=== PATIENT | female | born 1995 | race Two or more races ===

== ENCOUNTER 2020-12-29 09:38 | Outpatient (CLI) | payer OTHER ==
[~2020-12-29 09:38] MED LIST: METFORMIN HCL500 M3 PO
== END 2020-12-29 12:35 | disposition home or self-care (01) ==
LOC: PRENATAL 09:38
PROVIDERS: ATTEND Obstetrics & Gynecology Maternal & Fetal Medicine
DX: O35.0XX1 Maternal care for (suspected) central nervous system malformation in fetus, fetus 1 (principal); O35.3XX1 Maternal care for (suspected) damage to fetus from viral disease in mother, fetus 1; O98.512 Other viral diseases complicating pregnancy, second trimester; O24.410 Gestational diabetes mellitus in pregnancy, diet controlled; O99.212 Obesity complicating pregnancy, second trimester; Z36.89 Encounter for other specified antenatal screening; Z3A.20 20 weeks gestation of pregnancy

== ENCOUNTER 2021-02-11 09:00 | Outpatient (CLI) | payer OTHER ==
[2021-02-11] MEDS ORDERED: HUMULIN N100 UNIT/2 SUBCUTANEO (10:01)
[2021-02-11] MEDS ORDERED: INSULIN SYRING1 EA29 SUBCUTANEO (10:04)
[2021-02-11] MEDS ORDERED: HUMULIN R100 UNIT/1 SUBCUTANEO (10:04)
[2021-02-11] MEDS ORDERED: ALCOHOL PADS1 EACH TOP (10:05)
== END 2021-02-11 09:40 | disposition home or self-care (01) ==
LOC: PRENATAL 09:00
PROVIDERS: ATTEND Obstetrics & Gynecology Maternal & Fetal Medicine
DX: O26.843 Uterine size-date discrepancy, third trimester (principal); O24.410 Gestational diabetes mellitus in pregnancy, diet controlled; O99.213 Obesity complicating pregnancy, third trimester; O35.0XX1 Maternal care for (suspected) central nervous system malformation in fetus, fetus 1; O98.513 Other viral diseases complicating pregnancy, third trimester; Z36.89 Encounter for other specified antenatal screening; Z3A.28 28 weeks gestation of pregnancy

== ENCOUNTER 2021-03-15 14:21 | Outpatient (CLI) | payer OTHER ==
[~2021-03-15 14:21] MED LIST changes: +ALCOHOL PADS1 EACH TOP; +HUMULIN N100 UNIT/2 SUBCUTANEO; +HUMULIN R100 UNIT/1 SUBCUTANEO; +INSULIN SYRING1 EA29 SUBCUTANEO
== END 2021-03-15 15:24 | disposition home or self-care (01) ==
LOC: PRENATAL 14:21
PROVIDERS: ATTEND Obstetrics & Gynecology Maternal & Fetal Medicine
DX: O26.843 Uterine size-date discrepancy, third trimester (principal); O24.410 Gestational diabetes mellitus in pregnancy, diet controlled; O99.213 Obesity complicating pregnancy, third trimester; Z36.89 Encounter for other specified antenatal screening; Z3A.32 32 weeks gestation of pregnancy

== ENCOUNTER 2021-04-01 15:00 | Inpatient (IN) | payer OTHER ==
[~2021-04-01] VITALS: Ht 167.6 cm; Wt 113.4 kg
[2021-04-01] MEDS ORDERED: PRENATAL TABLE1 EAC1 PO (21:11)
[2021-04-01] MEDS ORDERED: LABETALOL HCL100 MG PO (21:12)
[2021-04-01] MEDS ORDERED: ADULT LOW DOSE81 M1 PO (21:13)
[2021-04-01] MEDS ORDERED: HUMULIN R100 UNIT/1 SUBCUTANEO ×2 (21:14→21:20)
[2021-04-01] MEDS ORDERED: HUMULIN N100 UNIT/2 SUBCUTANEO ×2 (21:16→21:17)
== END 2021-04-04 10:17 | disposition home or self-care (01) | DRG 833 ==
LOC: LDR 15:00
PROVIDERS: ADMIT Obstetrics & Gynecology; ATTEND Obstetrics & Gynecology
PROC: 4A1HXFZ Monitoring of Products of Conception, Cardiac Rhythm, External Approach (ICD-10-PCS; principal; 2021-04-01)
PROC: BY4FZZZ Ultrasonography of Third Trimester, Single Fetus (ICD-10-PCS; 2021-04-01)
DX: O13.3 Gestational [pregnancy-induced] hypertension without significant proteinuria, third trimester (principal); O24.414 Gestational diabetes mellitus in pregnancy, insulin controlled; Z3A.34 34 weeks gestation of pregnancy

== ENCOUNTER 2021-04-05 00:15 | Inpatient (IN) | payer OTHER ==
[~2021-04-05] VITALS: Ht 167.6 cm; Wt 2.3 kg
[~2021-04-05 00:15] MED LIST changes: +ADULT LOW DOSE81 M1 PO; +LABETALOL HCL100 MG PO; +PRENATAL TABLE1 EAC1 PO
== END 2021-04-10 14:42 | disposition home or self-care (01) | DRG 784 ==
LOC: ICU 00:15 → LDR 00:15 → O/R 13:27 → ICU 17:23 → OB/GYN 04-08 13:13
PROVIDERS: ADMIT Obstetrics & Gynecology; ATTEND Obstetrics & Gynecology
PROC: 0UB70ZZ Excision of Bilateral Fallopian Tubes, Open Approach (ICD-10-PCS; 2021-04-05)
PROC: 4A1HXFZ Monitoring of Products of Conception, Cardiac Rhythm, External Approach (ICD-10-PCS; 2021-04-05)
PROC: 10D00Z1 Extraction of Products of Conception, Low, Open Approach (ICD-10-PCS; principal; 2021-04-05 11:30)
DX: O14.14 Severe pre-eclampsia complicating childbirth (principal); O99.42 Diseases of the circulatory system complicating childbirth; I16.9 Hypertensive crisis, unspecified; I27.20 Pulmonary hypertension, unspecified; R09.02 Hypoxemia; I11.0 Hypertensive heart disease with heart failure; O24.424 Gestational diabetes mellitus in childbirth, insulin controlled; O34.211 Maternal care for low transverse scar from previous cesarean delivery; Z30.2 Encounter for sterilization; Z53.29 Procedure and treatment not carried out because of patient's decision for other reasons; Z3A.34 34 weeks gestation of pregnancy; Z37.0 Single live birth

== ENCOUNTER 2021-04-12 13:10 | Emergency (ER) | payer OTHER ==
[~2021-04-12] VITALS: Ht 167.6 cm; Wt 113.4 kg
[2021-04-12] MEDS ORDERED: ADVIL200 M1 PO (13:20)
== END 2021-04-12 20:37 | disposition home or self-care (01) ==
LOC: ER 13:10
DX: O86.09 Infection of obstetric surgical wound, other surgical site (principal); B96.4 Proteus (mirabilis) (morganii) as the cause of diseases classified elsewhere